=== PATIENT | male | born 1985 | race African-American/Black ===

== ENCOUNTER 2016-11-12 22:34 | Emergency (ER) | payer SELFPAY ==
[2016-11-12 22:54] VITALS: BP 104/64
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
[2016-11-12] MEDS ORDERED: CYCL10TA2 PO (23:39)
--- NOTE | 2016-11-13 07:51 | RAD ---
Indication persistent pain associated with a fall 2 days previously. AP view the pelvis was obtained as well as targeted AP and frog leg views of the right hip. No bony abnormality is seen
== END 2016-11-12 23:50 | disposition home or self-care (01) ==
LOC: ER 22:34
DX: M54.5 Low back pain (principal); M25.551 Pain in right hip
CPT/HCPCS: 73502; 99284

== ENCOUNTER 2018-03-24 22:28 | Emergency (ER) | payer SELFPAY ==
[~2018-03-24] VITALS: Ht 167.6 cm; Wt 96.6 kg
[~2018-03-24 22:28] MED LIST: CYCL10TA2 PO
[2018-03-24 23:00] VITALS: BP 116/72
[2018-03-24] MEDS ORDERED: AZIT250T6 PO (23:51)
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
[2018-03-25] MEDS: DEXAMETHASONE 4 MG TABLET PO ONE (00:06)
--- NOTE | 2018-03-25 07:38 | RAD ---
EXAM: CHEST PA LATERAL DATE: 03/24/2018 11:43 PM INDICATION: SHORTNESS OF BREATH, AND CHEST PAIN X1 WEEK COMPARISON: No Prior FINDINGS: The heart is not enlarged. Mediastinal and hilar contours are normal. 1.1 cm nodular opacity in the peripheral left midlung. No lobar consolidation. No pleural effusion or pneumothorax. No pleural effusion or pneumothorax. IMPRESSION: 1. A 1.1 cm nodular opacity is seen in the left midlung peripherally. Recommend correlation with priors to assess for stability if available. Otherwise consider CT chest if clinically indicated. 2. Otherwise no evidence of acute cardiopulmonary process. Electronically signed by: Ezekiel Weaver MD (03/25/2018 7:35 AM) [facility]
== END 2018-03-25 00:35 | disposition home or self-care (01) ==
LOC: ER 22:28
DX: J40 Bronchitis, not specified as acute or chronic (principal)
CPT/HCPCS: 71046; 99284; J8540

== ENCOUNTER 2019-03-06 06:29 | Emergency (ER) | payer SELFPAY ==
[~2019-03-06] VITALS: Ht 170.2 cm; Wt 95.3 kg
[~2019-03-06 06:29] MED LIST changes: +AZIT250T6 PO; +CYCL5TAB PO; +IBUP-1007 PO
[2019-03-06] MEDS ORDERED: KETOROLAC 15 MG/ML VIAL. IV ONE (06:45)
[2019-03-06] MEDS ORDERED: ONDANSETRON PF 4 MG/2 ML VIAL. IV ONE (06:45)
[2019-03-06] MEDS ORDERED: FAMOTIDINE 20 MG/2 ML VIAL IVP ONE (06:45)
[2019-03-06] MEDS ORDERED: IV NORMAL SALINE 1000ML BAG 1,000 ML IV ONE (06:45)
[2019-03-06] MEDS ORDERED: HYOS0.1265 SL (06:48)
[2019-03-06] MEDS ORDERED: ONDA4TAB12 PO (06:48)
[2019-03-06] MEDS ORDERED: FAMO-63 PO (06:48)
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
[2019-03-06 06:53] LABS: BASO % 1 % (0-3); EOS # 0.1 x10^3/uL (0.0-0.7); EOS % 1 % (0-3); HEMATOCRIT 41.1 % (39.0-53.0); HEMOGLOBIN 13.8 g/dL (13.0-17.5); LYMPH # 1.7 x10^3/uL (1.0-4.8); LYMPH % 41 % (24-48); MEAN CORPUSCULAR HEMOGLOBIN 28 pg (25-35); MEAN CORPUSCULAR HGB CONC 34 g/dL (31-37); MEAN CORPUSCULAR VOLUME 85 fL (79-100); MONO # 0.4 x10^3/uL (0.0-1.1); MONO % 9 % (0-9); NEUT % 48 % (31-73); PLATELET COUNT 210 x10^3/uL (140-400); RED BLOOD COUNT 4.84 x10^6/uL (4.30-5.70); RED CELL DISTRIBUTION WIDTH 13.3 % (11.5-14.5); WHITE BLOOD COUNT 4.3 x10^3/uL (4.0-11.0)
[2019-03-06] MEDS ORDERED: IOHEXOL 300 MG/ML 100ML VIAL. IV ONE (07:00)
[2019-03-06 07:15] LABS: ALBUMIN 4.1 g/dL (3.4-5.0); ALBUMIN/GLOBULIN RATIO 1.2 (1.0-1.7); CREATININE 1.3 mg/dL (0.7-1.3); GFR 77.4; MAGNESIUM 2.1 mg/dL (1.8-2.4); POTASSIUM 3.9 mmol/L (3.5-5.1); TOTAL BILIRUBIN 0.7 mg/dL (0.2-1.0); TOTAL PROTEIN 7.4 g/dL (6.4-8.2)
[2019-03-06] MEDS ORDERED: CONTRAST GIVEN. MC PRN (07:15)
--- NOTE | 2019-03-06 08:01 | RAD ---
CT ABD PELV W/ IV CONTRST ONLY History: Right lower quadrant pain Comparison: None. Technique: After administration of intravenous contrast, helical CT of the abdomen and pelvis was performed from the lung bases through the ischial tuberosities. Coronal and sagittal reconstructions were obtained. 75 mL of Omnipaque 300 were used. One or more of the following dose reduction techniques were utilized: Automated exposure control (AEC), Adjustment of mA and/or kV according to patient size, Use of iterative reconstruction technique such as ASiR, CT scan done according to ALARA and image gently/image wisely Abdomen Findings: The visualized lung bases are clear. Hyperenhancing lesion in the right hepatic lobe segment 8 measuring 4.5 x 4.0 x 4.6 cm (TV the AP by CC) (series 2 image 19). Additional hyperenhancing lesion in the right hepatic lobe segment 5 measuring 2.2 x 2.2 x 2.2 cm (series 2 image 40). The gallbladder, pancreas, spleen, and bilateral adrenal glands are normal. Symmetric renal enhancement. There is no focal renal mass. There is no hydronephrosis. The visualized loops of small bowel are normal. The visualized loops of large bowel are normal. There is no evidence of bowel obstruction. Appendix is normal. There is no free fluid. There is no mesenteric or retroperitoneal adenopathy. The abdominal aorta is normal in caliber. Pelvis Findings: Urinary bladder is decompressed and poorly evaluated. No pelvic free fluid. There is no pelvic or inguinal adenopathy. There is no acute bony abnormality. Mild degenerative changes of the spine. IMPRESSION: 1. No acute abdominopelvic process. Normal caliber bowel. Normal appendix. No fluid collection. 2. Two indeterminate hyperenhancing hepatic lesions measuring 4.6 cm and 2.2 cm. While these most likely represent benign lesions such as focal nodular hyperplasia or hemangioma, a more aggressive process is not excluded and these should be further characterized with nonemergent contrast enhanced MRI of the abdomen using Eovist. Electronically signed by: Aubrey Moreira MD (03/06/2019 7:58 AM) [facility]
[2019-03-06 08:17] VITALS: BP 111/65
== END 2019-03-06 08:22 | disposition home or self-care (01) ==
LOC: ER 06:29
DX: R10.31 Right lower quadrant pain (principal); R11.0 Nausea; F17.210 Nicotine dependence, cigarettes, uncomplicated
CPT/HCPCS: 36415; 74177; 80053; 83690; 83735; 85025; 96374; 96375; 99285; J1885; J2405; J3490; J7030; Q9967

== ENCOUNTER 2019-04-23 01:58 | Emergency (ER) | payer SELFPAY ==
[~2019-04-23] VITALS: Ht 170.2 cm; Wt 99.3 kg
[~2019-04-23 01:58] MED LIST changes: +FAMO-63 PO; +HYOS0.1265 SL; +ONDA4TAB12 PO
[2019-04-23] MEDS ORDERED: fentaNYL PF VIAL 100 MCG/2 ML VIAL IV PRN (02:15)
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
[2019-04-23 02:24] LABS: BILIRUBIN,URINE NEGATIVE (NEG); CLARITY,URINE CLEAR; COLOR,URINE YELLOW; NITRITE,URINE NEGATIVE (NEG); PROTEIN,URINE NEGATIVE (NEG-TRACE)
[2019-04-23] MEDS ORDERED: ONDANSETRON PF 4 MG/2 ML VIAL. IV ONE (02:30)
[2019-04-23] MEDS ORDERED: IV NORMAL SALINE 1000ML BAG 1,000 ML IV SCH (02:30)
[2019-04-23 02:31] LABS: BACTERIA,URINE 0 /HPF (0-FEW); RBC,URINE OCC /HPF (0-2); SQUAMOUS EPITHELIAL CELL,UR OCC /LPF; WBC,URINE OCC /HPF (0-4)
[2019-04-23 02:42] LABS: BASO % 1 % (0-3); EOS # 0.1 x10^3/uL (0.0-0.7); EOS % 1 % (0-3); HEMOGLOBIN 13.3 g/dL (13.0-17.5); LYMPH # 1.8 x10^3/uL (1.0-4.8); LYMPH % 46 % (24-48); MEAN CORPUSCULAR HEMOGLOBIN 29 pg (25-35); MEAN CORPUSCULAR HGB CONC 34 g/dL (31-37); MEAN CORPUSCULAR VOLUME 84 fL (79-100); MONO # 0.3 x10^3/uL (0.0-1.1); MONO % 8 % (0-9); NEUT # 1.7 x10^3/uL (1.8-7.7); NEUT % 43 % (31-73); PLATELET COUNT 210 x10^3/uL (140-400); RED BLOOD COUNT 4.66 x10^6/uL (4.30-5.70); RED CELL DISTRIBUTION WIDTH 12.8 % (11.5-14.5); WHITE BLOOD COUNT 3.9 x10^3/uL (4.0-11.0)
[2019-04-23 02:51] LABS: CREATININE 1.2 mg/dL (0.7-1.3); GFR 84.9; POTASSIUM 3.8 mmol/L (3.5-5.1)
[2019-04-23 02:57] LABS: ALBUMIN 3.7 g/dL (3.4-5.0); ALBUMIN/GLOBULIN RATIO 1.2 (1.0-1.7); TOTAL BILIRUBIN 0.2 mg/dL (0.2-1.0); TOTAL PROTEIN 6.9 g/dL (6.4-8.2)
[2019-04-23] MEDS ORDERED: IOHEXOL 300 MG/ML 100ML VIAL. IV ONE (03:30)
[2019-04-23] MEDS ORDERED: LIDO:MAALOX 1:1 20 ML SINGLE DOSE. PO ONE (03:30)
--- NOTE | 2019-04-23 04:35 | RAD ---
Study: CT abdomen/pelvis with intravenous contrast Indication: Severe back and abdominal pain. Comparison: 03/06/2019 Technique: Helical CT imaging performed of the abdomen and pelvis after the intravenous administration of 75 cc Omnipaque 300 contrast. Sagittal and coronal reformats were obtained. One or more of the following individualized dose reduction techniques were utilized for this examination: 1. Automated exposure control 2. Adjustment of the mA and/or kV according to patient size 3. Use of iterative reconstruction technique. Findings: Mild bibasilar volume loss. Redemonstrated sequela of a remote granulomatous process. The previously described hyperenhancing hepatic lesions on the 03/06/2019 comparison exam are less well characterized on this study and manifest as small areas of ill-defined low-attenuation such as at the upper aspect of the right hepatic lobe on image 16 series 2 and at the lower aspect of the right hepatic lobe on image 35 series 2. No newly seen hepatic abnormality. Unremarkable gallbladder, pancreas, spleen, adrenal glands and kidneys. No hydroureteronephrosis. Unremarkable urinary bladder and prostate. The colon is within normal limits. The appendix is normal. Unremarkable small bowel. Mildly distended stomach without discrete mucosal abnormality. Unremarkable major vascular structures. No free fluid or air. No adenopathy. Unremarkable body wall soft tissues. Redemonstrated dense mineralization within the T11-T12 disc space. Unchanged T10 and T11 Schmorl's nodes. Endplate irregularity at L4-L5 is unchanged. Redemonstrated bilateral pars defects at L2. There appears to be mild central canal stenosis at T11-T12. Impression: 1. No newly seen abnormality throughout the abdomen or pelvis. The previously described hepatic lesions that were hyperenhancing on the comparison study manifest on today's exam as ill-defined areas of low attenuation. Though again favored benign processes such as hemangiomas, eventual nonemergent MRI would be beneficial for full characterization. 2. Unchanged dense calcifications within the T11-T12 disc space. There does appear to be mild central canal stenosis at this level. Also unchanged are bilateral chronic pars defects at L2 without associated spondylolisthesis. No newly seen osseous abnormality. 3. Sequela of a remote granulomatous process. Electronically signed by: SUYAPA SARMIENTO MD (04/23/2019 4:32 AM) [facility]
[2019-04-23] MEDS ORDERED: ONDA4TAB7 PO (04:52)
[2019-04-23] MEDS ORDERED: DICY10CA3 PO (04:52)
[2019-04-23] MEDS ORDERED: TRAM50TA PO (04:52)
[2019-04-23 05:01] VITALS: BP 107/65
== END 2019-04-23 05:04 | disposition home or self-care (01) ==
LOC: ER 01:58
DX: G89.29 Other chronic pain (principal); M54.6 Pain in thoracic spine; R10.13 Epigastric pain
CPT/HCPCS: 36415; 74177; 80053; 81001; 83690; 85025; 96374; 96375; 99285; J2405; J3010; J7030; Q9967

== ENCOUNTER 2019-05-25 01:29 | Emergency (ER) | payer SELFPAY ==
[~2019-05-25] VITALS: Ht 170.2 cm; Wt 99.3 kg
[~2019-05-25 01:29] MED LIST changes: +DICY10CA3 PO; +ONDA4TAB7 PO; +TRAM50TA PO
[2019-05-25] MEDS ORDERED: MORPHINE SULFATE 4 MG/ML VIAL. IV/SQ PRN (02:15)
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
[2019-05-25 02:23] LABS: BASO % 1 % (0-3); EOS # 0.1 x10^3/uL (0.0-0.7); EOS % 2 % (0-3); HEMATOCRIT 40.6 % (39.0-53.0); HEMOGLOBIN 13.7 g/dL (13.0-17.5); LYMPH # 2.5 x10^3/uL (1.0-4.8); LYMPH % 45 % (24-48); MEAN CORPUSCULAR HEMOGLOBIN 29 pg (25-35); MEAN CORPUSCULAR HGB CONC 34 g/dL (31-37); MEAN CORPUSCULAR VOLUME 85 fL (79-100); MONO # 0.5 x10^3/uL (0.0-1.1); MONO % 9 % (0-9); NEUT # 2.5 x10^3/uL (1.8-7.7); NEUT % 44 % (31-73); PLATELET COUNT 203 x10^3/uL (140-400); RED BLOOD COUNT 4.78 x10^6/uL (4.30-5.70); RED CELL DISTRIBUTION WIDTH 13.4 % (11.5-14.5); WHITE BLOOD COUNT 5.7 x10^3/uL (4.0-11.0)
[2019-05-25 02:25] LABS: BILIRUBIN,URINE NEGATIVE (NEG); CLARITY,URINE CLEAR; COLOR,URINE YELLOW; NITRITE,URINE NEGATIVE (NEG); PROTEIN,URINE NEGATIVE (NEG-TRACE)
[2019-05-25] MEDS ORDERED: IV NORMAL SALINE 1000ML BAG 1,000 ML IV SCH (02:30)
[2019-05-25] MEDS ORDERED: ONDANSETRON PF 4 MG/2 ML VIAL. IV ONE (02:30)
[2019-05-25 02:31] LABS: CALCIUM 8.7 mg/dL (8.5-10.1); CREATININE 1.2 mg/dL (0.7-1.3); GFR 84.9; POTASSIUM 3.7 mmol/L (3.5-5.1)
[2019-05-25 02:35] LABS: BACTERIA,URINE 0 /HPF (0-FEW); RBC,URINE 0 /HPF (0-2); SPERM,URINE PRESENT /HPF; SQUAMOUS EPITHELIAL CELL,UR OCC /LPF; WBC,URINE OCC /HPF (0-4)
[2019-05-25 02:37] LABS: ALBUMIN 3.8 g/dL (3.4-5.0); ALBUMIN/GLOBULIN RATIO 1.1 (1.0-1.7); TOTAL BILIRUBIN 0.3 mg/dL (0.2-1.0); TOTAL PROTEIN 7.4 g/dL (6.4-8.2)
[2019-05-25] MEDS ORDERED: TRAM50TA PO (02:51)
[2019-05-25] MEDS ORDERED: PANT40TA77 PO (02:51)
[2019-05-25 03:26] VITALS: BP 106/66
--- NOTE | 2019-05-25 06:49 | EKG ---
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
== END 2019-05-25 03:40 | disposition home or self-care (01) ==
LOC: ER 01:29
DX: K29.70 Gastritis, unspecified, without bleeding (principal); G89.29 Other chronic pain; M54.5 Low back pain; Z87.19 Personal history of other diseases of the digestive system
CPT/HCPCS: 36415; 80053; 81001; 83690; 85025; 93005; 96361; 96374; 96375; 99285; J2270; J2405; J7030

== ENCOUNTER 2019-05-27 04:38 | Emergency (ER) | payer SELFPAY ==
[~2019-05-27] VITALS: Ht 172.7 cm; Wt 99.3 kg
[~2019-05-27 04:38] MED LIST changes: +PANT40TA77 PO
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
[2019-05-27 05:02] LABS: BASO % 1 % (0-3); EOS # 0.1 x10^3/uL (0.0-0.7); EOS % 2 % (0-3); HEMATOCRIT 42.1 % (39.0-53.0); HEMOGLOBIN 14.1 g/dL (13.0-17.5); LYMPH # 1.9 x10^3/uL (1.0-4.8); LYMPH % 36 % (24-48); MEAN CORPUSCULAR HEMOGLOBIN 28 pg (25-35); MEAN CORPUSCULAR HGB CONC 34 g/dL (31-37); MEAN CORPUSCULAR VOLUME 84 fL (79-100); MONO # 0.5 x10^3/uL (0.0-1.1); MONO % 9 % (0-9); NEUT # 2.8 x10^3/uL (1.8-7.7); NEUT % 52 % (31-73); PLATELET COUNT 214 x10^3/uL (140-400); RED BLOOD COUNT 5.01 x10^6/uL (4.30-5.70); WHITE BLOOD COUNT 5.3 x10^3/uL (4.0-11.0)
[2019-05-27 05:10] LABS: CALCIUM 8.7 mg/dL (8.5-10.1); CREATININE 1.4 mg/dL (0.7-1.3); GFR 71.1; POTASSIUM 3.9 mmol/L (3.5-5.1)
[2019-05-27 05:17] LABS: ALBUMIN 3.7 g/dL (3.4-5.0); TOTAL BILIRUBIN 0.2 mg/dL (0.2-1.0); TOTAL PROTEIN 7.4 g/dL (6.4-8.2)
[2019-05-27] MEDS ORDERED: ONDANSETRON PF 4 MG/2 ML VIAL. IV ONE (05:30)
[2019-05-27] MEDS ORDERED: KETOROLAC 30 MG/ML VIAL. IV ONE (05:30)
[2019-05-27] MEDS ORDERED: CONTRAST GIVEN. MC PRN (05:30)
[2019-05-27 05:46] VITALS: BP 118/73
--- NOTE | 2019-05-27 05:52 | RAD ---
CT ABD PELV W/ IV CONTRST ONLY History: Abdominal pain Technique: After the administration of intravenous contrast, CT imaging was performed of the abdomen and pelvis. Multiplanar images are reviewed. Exposure: One or more of the following individualized dose reduction techniques were utilized for this examination: 1. Automated exposure control 2. Adjustment of the mA and/or kV according to patient size 3. Use of iterative reconstruction technique. Comparison: April 23, 2019 Findings: Lower chest: No consolidation or pleural effusion. Abdomen and pelvis: Unchanged right hepatic lobe hypoattenuating lesions. The spleen, adrenal glands, and pancreas are unremarkable. Contracted gallbladder. No biliary ductal dilatation. Patent portal and hepatic veins. Tiny right renal hypodensity, unchanged, too small to further characterize. No hydronephrosis. No renal calculi. Normal appendix. No evidence of bowel obstruction. No pathologic lymphadenopathy. No ascites. Decompressed urinary bladder. Bones: L2 bilateral chronic spondylolysis. Impression: 1. No acute intra-abdominal or pelvic pathology. 2. Unchanged hepatic hypoattenuating lesions. Nonemergent MRI can definitively characterize. Electronically signed by: Mir Girard DO (05/27/2019 5:49 AM) [facility]
[2019-05-27] MEDS ORDERED: IOHEXOL 300 MG/ML 100ML VIAL. IV ONE (06:00)
[2019-05-27] MEDS ORDERED: DICY20TA3 PO (06:02)
== END 2019-05-27 06:25 | disposition home or self-care (01) ==
LOC: ER 04:38
DX: G89.29 Other chronic pain (principal); R10.10 Upper abdominal pain, unspecified; R11.2 Nausea with vomiting, unspecified; F12.90 Cannabis use, unspecified, uncomplicated
CPT/HCPCS: 36415; 74177; 80053; 85025; 96374; 96375; 99285; J1885; J2405; Q9967

== ENCOUNTER 2019-07-21 07:49 | Emergency (ER) | payer SELFPAY ==
[~2019-07-21] VITALS: Ht 167.6 cm; Wt 97.5 kg
[~2019-07-21 07:49] MED LIST changes: +DICY20TA3 PO
[2019-07-21] MEDS ORDERED: IV NORMAL SALINE 1000ML BAG 1,000 ML IV SCH (08:23)
[2019-07-21] MEDS ORDERED: ONDANSETRON PF 4 MG/2 ML VIAL. IV ONE (08:30)
[2019-07-21] MEDS ORDERED: fentaNYL PF VIAL 100 MCG/2 ML VIAL IV ONE (08:30)
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
--- NOTE | 2019-07-21 08:47 | RAD ---
CHEST PA LATERAL Clinical indications: Cough. Flulike symptoms left-sided chest pain. COMPARISON: March 24, 2018. Findings: No acute lung infiltrate or pleural effusion or pulmonary edema or lung mass or pneumothorax is seen. The heart size, pulmonary vasculature, mediastinum and both mana are unremarkable. The osseous structures appear intact. Impression: No acute radiographic abnormality is seen. Electronically signed by: Delfino Keys MD (07/21/2019 8:44 AM) [id number]
[2019-07-21 08:51] LABS: BILIRUBIN,URINE NEGATIVE (NEG); CLARITY,URINE CLEAR; COLOR,URINE YELLOW; NITRITE,URINE NEGATIVE (NEG); PROTEIN,URINE NEGATIVE (NEG-TRACE)
[2019-07-21 08:52] LABS: BASO % 1 % (0-3); EOS % 1 % (0-3); HEMATOCRIT 42.4 % (39.0-53.0); HEMOGLOBIN 14.1 g/dL (13.0-17.5); LYMPH # 1.6 x10^3/uL (1.0-4.8); LYMPH % 62 % (24-48); MEAN CORPUSCULAR HEMOGLOBIN 28 pg (25-35); MEAN CORPUSCULAR HGB CONC 33 g/dL (31-37); MEAN CORPUSCULAR VOLUME 84 fL (79-100); MONO # 0.3 x10^3/uL (0.0-1.1); MONO % 13 % (0-9); NEUT # 0.6 x10^3/uL (1.8-7.7); NEUT % 24 % (31-73); PLATELET COUNT 165 x10^3/uL (140-400); RED BLOOD COUNT 5.06 x10^6/uL (4.30-5.70); RED CELL DISTRIBUTION WIDTH 12.9 % (11.5-14.5); WHITE BLOOD COUNT 2.6 x10^3/uL (4.0-11.0)
[2019-07-21 09:02] LABS: BARBITURATES NEG (NEG); BENZODIAZEPINES NEG (NEG); CANNABINOIDS POS (NEG); COCAINE NEG (NEG); METHADONE NEG (NEG); OPIATES NEG (NEG); PHENCYCLIDINE NEG (NEG)
[2019-07-21 09:03] LABS: CALCIUM 8.6 mg/dL (8.5-10.1); CREATININE 1.2 mg/dL (0.7-1.3); GFR 84.4; POTASSIUM 3.8 mmol/L (3.5-5.1)
[2019-07-21 09:04] LABS: AMPHETAMINE/METHAMPHETAMINE NEG (NEG)
[2019-07-21 09:06] LABS: BACTERIA,URINE FEW /HPF (0-FEW); RBC,URINE OCC /HPF (0-2)
[2019-07-21 09:08] LABS: ALBUMIN 3.7 g/dL (3.4-5.0); ALBUMIN/GLOBULIN RATIO 1.1 (1.0-1.7); TOTAL BILIRUBIN 0.4 mg/dL (0.2-1.0); TOTAL PROTEIN 7.2 g/dL (6.4-8.2)
[2019-07-21 09:09] VITALS: BP 106/72
[2019-07-21] MEDS ORDERED: HYDR-3164 PO (09:23)
[2019-07-21] MEDS ORDERED: AZIT250T PO (09:23)
[2019-07-21] MEDS ORDERED: BENZ100C PO (09:23)
== END 2019-07-21 09:43 | disposition home or self-care (01) ==
LOC: ER 07:49
DX: J10.1 Influenza due to other identified influenza virus with other respiratory manifestations (principal); J40 Bronchitis, not specified as acute or chronic; R11.2 Nausea with vomiting, unspecified; R19.7 Diarrhea, unspecified; M54.9 Dorsalgia, unspecified; R50.9 Fever, unspecified; F12.90 Cannabis use, unspecified, uncomplicated; Z98.890 Other specified postprocedural states; Z79.899 Other long term (current) drug therapy
CPT/HCPCS: 36415; 71046; 80053; 80307; 81001; 83690; 85025; 96361; 96374; 96375; 99285; J2405; J3010; J7030

== ENCOUNTER 2019-12-22 04:57 | Emergency (ER) | payer OTHER ==
[~2019-12-22] VITALS: Ht 172.7 cm; Wt 97.7 kg
[~2019-12-22 04:57] MED LIST changes: +AZIT250T PO; +BENZ100C PO; +HYDR-3164 PO
[2019-12-22] MEDS ORDERED: IV NORMAL SALINE 1000ML BAG 1,000 ML IV SCH (05:13)
[2019-12-22] MEDS ORDERED: fentaNYL PF VIAL 100 MCG/2 ML VIAL IV PRN (05:15)
[2019-12-22] MEDS ORDERED: ONDANSETRON PF 4 MG/2 ML VIAL. IVP ONE (05:15)
[2019-12-22] MEDS ORDERED: FAMOTIDINE 20 MG/2 ML VIAL IVP ONE (05:15)
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
[2019-12-22 05:32] LABS: BASO % 1 % (0-3); EOS # 0.1 x10^3/uL (0.0-0.7); EOS % 2 % (0-3); HEMOGLOBIN 14.2 g/dL (13.0-17.5); LYMPH # 2.3 x10^3/uL (1.0-4.8); LYMPH % 54 % (24-48); MEAN CORPUSCULAR HEMOGLOBIN 29 pg (25-35); MEAN CORPUSCULAR HGB CONC 34 g/dL (31-37); MEAN CORPUSCULAR VOLUME 84 fL (79-100); MONO # 0.4 x10^3/uL (0.0-1.1); MONO % 9 % (0-9); NEUT # 1.5 x10^3/uL (1.8-7.7); NEUT % 35 % (31-73); PLATELET COUNT 205 x10^3/uL (140-400); RED BLOOD COUNT 4.98 x10^6/uL (4.30-5.70); RED CELL DISTRIBUTION WIDTH 13.1 % (11.5-14.5); WHITE BLOOD COUNT 4.3 x10^3/uL (4.0-11.0)
[2019-12-22 05:40] LABS: CALCIUM 8.5 mg/dL (8.5-10.1); CREATININE 1.3 mg/dL (0.7-1.3); GFR 76.9; POTASSIUM 3.4 mmol/L (3.5-5.1)
[2019-12-22 05:46] LABS: ALBUMIN 3.7 g/dL (3.4-5.0); ALBUMIN/GLOBULIN RATIO 1.2 (1.0-1.7); TOTAL BILIRUBIN 0.2 mg/dL (0.2-1.0); TOTAL PROTEIN 6.9 g/dL (6.4-8.2)
[2019-12-22 06:06] LABS: BILIRUBIN,URINE NEGATIVE (NEG); CLARITY,URINE CLEAR; COLOR,URINE YELLOW; NITRITE,URINE NEGATIVE (NEG); PH,URINE 5.5 (<5.0-8.0); PROTEIN,URINE NEGATIVE (NEG-TRACE)
[2019-12-22 06:08] LABS: BARBITURATES NEG (NEG); BENZODIAZEPINES NEG (NEG); CANNABINOIDS POS (NEG); COCAINE NEG (NEG); METHADONE NEG (NEG); OPIATES NEG (NEG); PHENCYCLIDINE NEG (NEG)
[2019-12-22 06:23] LABS: BACTERIA,URINE 0 /HPF (0-FEW); RBC,URINE 0 /HPF (0-2); SQUAMOUS EPITHELIAL CELL,UR OCC /LPF
[2019-12-22] MEDS ORDERED: CONTRAST GIVEN. MC PRN (06:30)
[2019-12-22] MEDS ORDERED: IOHEXOL 300 MG/ML 100ML VIAL. IV ONE (06:30)
[2019-12-22 06:32] LABS: AMPHETAMINE/METHAMPHETAMINE NEG (NEG)
--- NOTE | 2019-12-22 07:13 | RAD ---
INDICATION: Reason: upper abd pain / Spl. Instructions: IV OMNI 300 75 MLS / History: COMPARISON: May 27, 2019 TECHNIQUE: Axial CT images obtained through the abdomen and pelvis with contrast. One or more of the following individualized dose reduction techniques were utilized for this examination: 1. Automated exposure control; 2. Adjustment of the mA and/or kV according to patient size; 3. Use of iterative reconstruction technique. FINDINGS: Abdominal aorta is not aneurysmal. Small fat-containing umbilical hernia. Arterial enhancing lesion right lobe of the liver measuring up to 47 mm. There is a possible additional smaller arterial enhancing lesion right lobe of the liver but this is more questionable. No peripancreatic fluid collection. Spleen unremarkable. No hydronephrosis. Urinary bladder is largely decompressed. No periappendiceal inflammatory changes. No dilated loops of bowel to suggest obstruction. Mild scoliotic curvature of the spine with degenerative changes. Hypodensity at the T11-T12 disc space which could be postoperative in nature or secondary to dense calcification again seen pars defects at L2. IMPRESSION: * No evidence of bowel obstruction or appendicitis. * Arterial enhancing lesions of the liver are seen as identified on prior examination. In a patient this age some possible causes would include focal nodular hyperplasia or flash filling hemangioma however other higher grade lesions could have this appearance as well and MRI could more definitively characterize to ensure that there is not a higher grade etiology. Electronically signed by: Rory Kaiser MD (12/22/2019 7:10 AM) [id number]
[2019-12-22] MEDS ORDERED: OMEP20TA63 PO (07:53)
[2019-12-22] MEDS ORDERED: SUCR1TAB35 PO (07:53)
[2019-12-22 07:55] VITALS: BP 113/72
== END 2019-12-22 08:02 | disposition home or self-care (01) ==
LOC: ER 04:57
DX: K29.70 Gastritis, unspecified, without bleeding (principal); Z87.891 Personal history of nicotine dependence
CPT/HCPCS: 36415; 74177; 80053; 80307; 81001; 83690; 85025; 87086; 96361; 96374; 96375; 99285; J2405; J3010; J3490; J7030

== ENCOUNTER 2020-01-20 13:22 | Emergency (ER) | payer SELFPAY ==
[~2020-01-20] VITALS: Ht 170.2 cm; Wt 105.0 kg
[~2020-01-20 13:22] MED LIST changes: +OMEP20TA63 PO; +SUCR1TAB35 PO
[2020-01-20 16:03] LABS: BASO % 1 % (0-3); EOS % 1 % (0-3); HEMATOCRIT 42.2 % (39.0-53.0); HEMOGLOBIN 14.5 g/dL (13.0-17.5); LYMPH # 2.1 x10^3/uL (1.0-4.8); LYMPH % 46 % (24-48); MEAN CORPUSCULAR HEMOGLOBIN 29 pg (25-35); MEAN CORPUSCULAR HGB CONC 35 g/dL (31-37); MEAN CORPUSCULAR VOLUME 85 fL (79-100); MONO # 0.3 x10^3/uL (0.0-1.1); MONO % 7 % (0-9); NEUT # 2.1 x10^3/uL (1.8-7.7); NEUT % 46 % (31-73); PLATELET COUNT 214 x10^3/uL (140-400); RED BLOOD COUNT 4.96 x10^6/uL (4.30-5.70); RED CELL DISTRIBUTION WIDTH 13.2 % (11.5-14.5); WHITE BLOOD COUNT 4.5 x10^3/uL (4.0-11.0)
[2020-01-20 16:06] LABS: BILIRUBIN,URINE NEGATIVE (NEG); CLARITY,URINE CLEAR; COLOR,URINE YELLOW; NITRITE,URINE NEGATIVE (NEG); PROTEIN,URINE NEGATIVE (NEG-TRACE)
[2020-01-20 16:10] LABS: CREATININE 1.4 mg/dL (0.7-1.3); GFR 70.6; POTASSIUM 4.2 mmol/L (3.5-5.1)
[2020-01-20 16:13] LABS: BACTERIA,URINE 0 /HPF (0-FEW); RBC,URINE 0 /HPF (0-2); WBC,URINE 0 /HPF (0-4)
[2020-01-20 16:30] LABS: C-REACTIVE PROTEIN 0.7 mg/L (0-3.3); DIRECT BILIRUBIN 0.1 mg/dL (0.0-0.2); TOTAL BILIRUBIN 0.4 mg/dL (0.2-1.0); TOTAL PROTEIN 7.5 g/dL (6.4-8.2)
[2020-01-20] MEDS ORDERED: NAPR-682 PO (17:34)
[2020-01-20] MEDS ORDERED: GUAI473L15 PO (17:34)
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
[2020-01-20 17:39] VITALS: BP 121/66
--- NOTE | 2020-01-21 06:13 | EKG ---
[facility] [address] [place] [address] Test Date: 2020-01-20 Test Time: 16:11:23 Pat Name: TELMA RAMIREZ Department: Room: Gender: M [employer] D[employer]: : 1985 Requested By: JAY OVALLE Order Number: [id number] Reading MD: Measurements Intervals [place] Rate: 49 P: 34 [place]: 170 QRS: 66 QRSD: 96 T: 11 QT: 452 QTc: 407 Interpretive Statements SINUS BRADYCARDIA QRS(T) CONTOUR ABNORMALITY CONSIDER ANTEROLATERAL MYOCARDIAL DAMAGE POSSIBLY ABNORMAL ECG RI6.01 No previous ECG available for comparison
== END 2020-01-20 18:00 | disposition home or self-care (01) ==
LOC: ER 13:22
DX: R50.9 Fever, unspecified (principal); Z20.828 Contact with and (suspected) exposure to other viral communicable diseases; R06.02 Shortness of breath; R05 Cough; F17.200 Nicotine dependence, unspecified, uncomplicated; F12.90 Cannabis use, unspecified, uncomplicated; Z98.890 Other specified postprocedural states
CPT/HCPCS: 36415; 80048; 80076; 81001; 83615; 83690; 84484; 85025; 85379; 86140; 93005; 99285

== ENCOUNTER 2020-02-12 03:58 | Emergency (ER) | payer OTHER ==
[~2020-02-12] VITALS: Ht 170.2 cm; Wt 95.5 kg
[~2020-02-12 03:58] MED LIST changes: +GUAI473L15 PO; +NAPR-682 PO
[2020-02-12] MEDS ORDERED: LIDO:MAALOX 1:1 20 ML SINGLE DOSE. SWSW ONE (06:00)
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
[2020-02-12 06:30] LABS: BASO % 1 % (0-3); EOS # 0.1 x10^3/uL (0.0-0.7); EOS % 2 % (0-3); HEMATOCRIT 38.8 % (39.0-53.0); HEMOGLOBIN 13.3 g/dL (13.0-17.5); LYMPH # 1.9 x10^3/uL (1.0-4.8); LYMPH % 47 % (24-48); MEAN CORPUSCULAR HEMOGLOBIN 29 pg (25-35); MEAN CORPUSCULAR HGB CONC 34 g/dL (31-37); MEAN CORPUSCULAR VOLUME 85 fL (79-100); MONO # 0.5 x10^3/uL (0.0-1.1); MONO % 13 % (0-9); NEUT # 1.5 x10^3/uL (1.8-7.7); NEUT % 37 % (31-73); PLATELET COUNT 174 x10^3/uL (140-400); RED BLOOD COUNT 4.56 x10^6/uL (4.30-5.70); RED CELL DISTRIBUTION WIDTH 12.8 % (11.5-14.5)
[2020-02-12 07:09] LABS: CALCIUM 8.7 mg/dL (8.5-10.1); CREATININE 1.2 mg/dL (0.7-1.3); GFR 84.4; POTASSIUM 3.9 mmol/L (3.5-5.1)
[2020-02-12] MEDS ORDERED: SUCR1TAB35 PO (07:12)
--- NOTE | 2020-02-12 07:12 | RAD ---
Abdominal ultrasound Limited: Reason for examination: Right upper quadrant pain. History of gastritis and stomach ulcers. Pancreas is poorly visualized due to bowel gas. The liver is homogeneous and normal in size at 16.8 cm without a focal lesion evident. There is normal hepatopedal portal venous flow. Gallbladder shows no cholelithiasis, sludge or wall thickening. Common bile duct is normal in caliber at 1.6 mm. Right kidney measures 9.1 x 5.4 x 4.2 cm in greatest dimension and shows normal cortical medullary differentiation and good vascular flow with no renal mass or hydronephrosis. No abnormality seen at the inferior vena cava. IMPRESSION: No acute abnormality evident in the right upper quadrant. Electronically signed by: Torri Boogie MD (02/12/2020 7:09 AM) [id number]
[2020-02-12 07:15] LABS: BILIRUBIN,URINE NEGATIVE (NEG); CLARITY,URINE CLEAR; COLOR,URINE YELLOW; NITRITE,URINE NEGATIVE (NEG); PH,URINE 5.5 (<5.0-8.0); PROTEIN,URINE NEGATIVE (NEG-TRACE)
[2020-02-12 07:15] LABS: ALBUMIN 3.5 g/dL (3.4-5.0); TOTAL BILIRUBIN 0.3 mg/dL (0.2-1.0); TOTAL PROTEIN 6.9 g/dL (6.4-8.2)
[2020-02-12 07:30] LABS: BACTERIA,URINE FEW /HPF (0-FEW); RBC,URINE RARE /HPF (0-2); WBC,URINE RARE /HPF (0-4)
[2020-02-12 07:31] LABS: SQUAMOUS EPITHELIAL CELL,UR OCC /LPF
[2020-02-12 08:00] VITALS: BP 102/55
== END 2020-02-12 08:20 | disposition home or self-care (01) ==
LOC: ER 03:58
DX: R10.13 Epigastric pain (principal); R10.11 Right upper quadrant pain; F17.200 Nicotine dependence, unspecified, uncomplicated
CPT/HCPCS: 36415; 76705; 80053; 81001; 83690; 85025; 99284